=== PATIENT | male | born 2000 | race Two or more races ===

== ENCOUNTER 2022-02-10 12:52 | Emergency (ER) | payer OTHER, SELFPAY ==
--- NOTE | ~2022-02-10 | XR_ITS ---
XR chest 2V DATE: 02/10/2022 13:44 INDICATION: Chest pain TECHNIQUE: PA and lateral views COMPARISON: None FINDINGS: Normal heart size. No hilar or mediastinal enlargement. No pulmonary infiltrate or consolid ation, pleural effusion or pulmonary vascular congestion or pneumothorax. Included skeletal structures are unremarkable. IMPRESSION: Negative Reviewed, dictated and finalized at location A. IMPRESSION: Negative
--- NOTE | 2022-02-10 13:08 | ECG_ITS ---
Measurements Intervals [place] Rate: 102 P: 64 ND: 148 QRS: 64 QRSD: 101 T: 43 QT: 313 QTc: 408 Interpretive Statements SINUS TACHYCARDIA POSSIBLE LEFT ATRIAL ENLARGEMENT INCOMPLETE RIGHT BUNDLE BRANCH BLOCK MINIMAL Q WAVES- ANTEROLAT/INF LEADS BASELINE WANDER- I, II, III, AVL, AVF, V1-V3 BORDERLINE ECG Electronically Signed On 02-10-2022 14:11:52 CDT by Victoriano Castelan D.O.
[2022-02-10 13:11] VITALS: BP 123/84; PULSE 96; RESP 18; TEMP 36.9; O2SAT 98
[2022-02-10 13:25] LABS: Basophils Percent Auto 0.6 % (0.2-1.2); Eosinophils Absolute Auto 0.1 K/mm3 (0-0.3); Eosinophils Percent Auto 1.5 % (0-4.4); Hematocrit 42.7 % (42.0-52.0); Hemoglobin 14.6 g/dL (14.0-18.0); Immature Granulocyte Absolute 0.01 K/mm3 (0.00-0.031); Immature Granulocyte Percent A 0.2 % (0-0.5); Lymphocytes Absolute Auto 1.63 K/mm3 (0.9-3.2); Mean Corpuscular HGB Conc 34.2 g/dl (32-36); Mean Corpuscular Hemoglobin 30.7 pg (26-34); Mean Corpuscular Volume 89.7 fl (80-100); Mean Platelet Volume 9.5 fl (7.4-10.4); Monocytes Absolute Auto 0.6 K/mm3 (0.1-0.6); Monocytes Percent Auto 12.3 % (2.6-8.5); Neutrophils Absolute Auto 2.5 K/mm3 (1.3-6.7); Neutrophils Percent Auto 51.4 % (45.5-73.1); Platelet Count Result 230 k/mm3 (150-375); Red Blood Count 4.76 M/mm3 (4.6-6.20); White Blood Count 4.8 K/mm3 (4.5-10.0)
[2022-02-10 13:34] LABS: Alanine Aminotransferase 23 U/L (6-50); Albumin Level 4.6 g/dL (3.5-5.1); Alkaline Phosphatase 60 U/L (38-126); Anion Gap 6 mmol/L (8-16); Aspartate Amino Transferase 32 U/L (17-59); Bilirubin,Total 0.5 mg/dL (0.2-1.3); Blood Urea Nitrogen 13 mg/dL (9-20); Calcium 8.8 mg/dL (8.4-10.2); Carbon Dioxide 25 mmol/L (22-30); Chloride 105 mmol/L (98-107); Estimated Glomerular Filt Rate > 60; Glucose 113 mg/dL (65-110); Lipase 53 U/L (23-300); Potassium 3.7 mmol/L (3.4-5.0); Sodium 136 mmol/L (137-145)
[2022-02-10 13:35] LABS: INR 1.1; Prothrombin Time 13.6 Seconds (11.1-14.7)
[2022-02-10 13:36] LABS: Partial Thromboplastin Time 30.9 SECONDS (22.3-36.8)
[2022-02-10 13:46] LABS: Troponin I < 0.012 ng/mL (0.000-0.034)
--- NOTE | 2022-02-10 14:10 | ED.CHESTPAIN ---
HPI - Chest Pain General Chief Complaint: Chest Pain <TANYA Henry Last Filed: 02/10/22 18:31> Stated Complaint: CP <TANYA Henry Last Filed: 02/10/22 18:31> Time Seen by Provider: 02/10/22 13:02 <TANYA Henry Last Filed: 02/10/22 18:31> History of Present Illness HPI narrative: Patient is a 21-year-old O[place]i-speaking male here for evaluation of chest pain over the past month. Patient states his pain come on after doing cocaine and methamphetamines. No IV drug use, states he snorted and smoked these. States the pain is intermittent in nature, provoked by certain positions. He has not attempted any medications for his pain. States that the pain comes on he also feels little bit lightheaded and anxious. Denies rash, fevers, chills, shortness of breath, cough recent travel, calf pain or tenderness. No family history of heart trouble. <TANYA Henry Last Filed: 02/10/22 18:31> Related Data Allergies/Adverse Reactions: Allergies Allergy/AdvReac Type Severity Reaction Status Date / Time No Known Allergies Allergy Verified 02/10/22 13:14 <TANYA Henry Last Filed: 02/10/22 18:31> Review of Systems Review of Systems: Gen.: Denies fevers or chills Eyes: Denies eye pain or visual change ENT: Denies congestion Respiratory: Denies shortness of breath or cough CV: Reports chest pain. GI: Denies abdominal pain nausea, emesis or diarrhea denies burning, urgency, frequency or hematuria Musculoskeletal: Denies back pain or muscle pain Neuro: Denies numbness, tingling, weakness or focal weakness Skin: Denies rash Except as documented, all other systems reviewed and negative <TANYA Henry Last Filed: 02/10/22 18:31> Exam Narrative: APPEARANCE: No acute distress, nontoxic, resting in bed EYES: EOMI HEENT: Normocephalic, atraumatic, OMM RESPIRATORY: No respiratory distress Clear to auscultation bilaterally with no rhonchi wheezing or rales. CARDIOVASCULAR: Regular rate and rhythm without murmurs rubs or gallops. ABDOMINAL: Soft, nontender, nondistended, no rebound or guarding MUSCULOSKELETAL: No calf tenderness. Moves all extremities. No clubbing, cyanosis or edema. NEURO: Awake and alert. Following commands, speech normal, no focal deficits SKIN: Warm, dry. No rashes lesions or abrasions. No [place]ay lesions or Osler nodes PSYCHIATRIC: Normal affect/mood, <Ashley Espinosa PA-C - Last Filed: 02/10/22 18:31> Course NIB ADJUSTER/PA Physician Supervision For this patient encounter, I reviewed the NIB ADJUSTER or PA documentation, treatment plan, and medical decision making <Larry Vigil MD - Last Filed: 02/10/22 19:55> Vital Signs Vital signs: Vital Signs Temperature 98.5 F 02/10/22 13:11 Pulse Rate 96 02/10/22 13:11 Respiratory Rate 18 02/10/22 13:11 Blood Pressure 123/84 02/10/22 13:11 Pulse Oximetry 98 02/10/22 13:11 Oxygen Delivery Room Air 02/10/22 13:11 Temperature 98.5 F 02/10/22 13:11 Pulse Rate 61 02/10/22 17:36 Respiratory Rate 20 02/10/22 17:36 Blood Pressure 139/77 02/10/22 17:36 Pulse Oximetry 100 02/10/22 17:36 Oxygen Delivery Room Air 02/10/22 13:11 <Ashley Espinosa PA-C - Last Filed: 02/10/22 18:31> Vital Signs Temperature 98.5 F 02/10/22 13:11 Pulse Rate 96 02/10/22 13:11 Respiratory Rate 18 02/10/22 13:11 Blood Pressure 123/84 02/10/22 13:11 Pulse Oximetry 98 02/10/22 13:11 Oxygen Delivery Room Air 02/10/22 13:11 Temperature 98.5 F 02/10/22 13:11 Pulse Rate 61 02/10/22 17:36 Respiratory Rate 20 02/10/22 17:36 Blood Pressure 139/77 02/10/22 17:36 Pulse Oximetry 100 02/10/22 17:36 Oxygen Delivery Room Air 02/10/22 13:11 <Larry Vigil MD - Last Filed: 02/10/22 19:55> MDM - Chest Pain MDM Narrative Medical decision making narrative: 21-year-old male
[2022-02-10] MEDS: IBUPROFEN 400 MG TABLET 800 MG PO (14:21)
[2022-02-10] MEDS: ACETAMINOPHEN 500 MG TABLET 1000 MG PO (14:22)
--- NOTE | 2022-02-10 16:09 | ECG_ITS ---
Measurements Intervals [place] Rate: 63 P: 53 HI: 171 QRS: 64 QRSD: 99 T: 45 QT: 369 QTc: 380 Interpretive Statements SINUS RHYTHM INCOMPLETE RIGHT BUNDLE BRANCH BLOCK MINIMAL Q WAVES- INF/LAT LEADS BASELINE ARTIFACT- I, II, AVR, AVL BORDERLINE ECG Electronically Signed On 02-10-2022 20:21:03 CDT by Victoriano Castelan D.O.
[2022-02-10 16:26] LABS: D Dimer < 0.27 ug/mL (<0.48)
[2022-02-10 16:29] LABS: Troponin I < 0.012 ng/mL (0.000-0.034)
[2022-02-10 17:36] VITALS: BP 139/77; PULSE 61; RESP 20; O2SAT 100
== END 2022-02-10 17:37 | disposition home or self-care (01) ==
PROVIDERS: Physician Assistant; Emergency Provider Emergency Medicine
DX: R07.89 Other chest pain (principal); R00.0 Tachycardia, unspecified; R94.31 Abnormal electrocardiogram [ECG] [EKG]; I45.10 Unspecified right bundle-branch block
CPT/HCPCS: 36415; 71046; 80053; 83690; 84484; 85025; 85380; 85610; 85730; 93005; 99284; A9270

== ENCOUNTER 2022-02-24 23:25 | Emergency (ER) | payer OTHER, SELFPAY ==
[2022-02-24 23:29] VITALS: BP 124/66; PULSE 67; RESP 20; TEMP 36.6; O2SAT 99
[2022-02-25 00:01] VITALS: BP 127/104; PULSE 67; RESP 18; O2SAT 99
[2022-02-25 00:03] VITALS: BP 127/104; PULSE 67; RESP 20; TEMP 36.7; O2SAT 99
[2022-02-25] MEDS: BELLADONNA ALK/PHENOB ELIX 10 ML, MAG HYDROX/ALUMINUM HYD/SIMETH 30 ML, LIDOCAINE HCL 2... PO (00:40)
[2022-02-25 00:47] LABS: Basophils Percent Auto 0.3 % (0.2-1.2); Eosinophils Absolute Auto 0.1 K/mm3 (0-0.3); Eosinophils Percent Auto 1.2 % (0-4.4); Hemoglobin 14.7 g/dL (14.0-18.0); Immature Granulocyte Absolute 0.01 K/mm3 (0.00-0.031); Immature Granulocyte Percent A 0.1 % (0-0.5); Lymphocytes Absolute Auto 1.93 K/mm3 (0.9-3.2); Lymphocytes Percent Auto 25.4 % (18.3-44.2); Mean Corpuscular HGB Conc 34.2 g/dl (32-36); Mean Corpuscular Hemoglobin 30.8 pg (26-34); Mean Platelet Volume 9.4 fl (7.4-10.4); Monocytes Absolute Auto 0.6 K/mm3 (0.1-0.6); Monocytes Percent Auto 8.3 % (2.6-8.5); Neutrophils Absolute Auto 4.9 K/mm3 (1.3-6.7); Neutrophils Percent Auto 64.7 % (45.5-73.1); Platelet Count Result 264 k/mm3 (150-375); Red Blood Count 4.78 M/mm3 (4.6-6.20); Red Cell Distribution Width 12.2 % (11.5-14.5); White Blood Count 7.6 K/mm3 (4.5-10.0)
[2022-02-25 01:01] LABS: Alanine Aminotransferase 20 U/L (6-50); Albumin Level 4.6 g/dL (3.5-5.1); Alkaline Phosphatase 61 U/L (38-126); Anion Gap 6 mmol/L (8-16); Aspartate Amino Transferase 24 U/L (17-59); Bilirubin,Total 0.4 mg/dL (0.2-1.3); Blood Urea Nitrogen 12 mg/dL (9-20); Calcium 8.9 mg/dL (8.4-10.2); Carbon Dioxide 26 mmol/L (22-30); Chloride 107 mmol/L (98-107); Estimated CRCL calculation 136 ml/min; Estimated Glomerular Filt Rate > 60; Glucose 112 mg/dL (65-110); Lipase 38 U/L (23-300); Potassium 3.3 mmol/L (3.4-5.0); Sodium 139 mmol/L (137-145)
--- NOTE | 2022-02-25 02:20 | ED.GENADULT ---
HPI - General Adult General Chief complaint: Abdominal Pain Stated complaint: abd pain Time Seen by Provider: 02/24/22 23:58 History of Present Illness HPI narrative: Patient is a 21-year-old male who presents ER with epigastric pain ongoing for last 3 days. Worse when he eats chips. Radiates into his chest and back of his mouth. Burning. Mild nausea but no vomiting. No fevers or chills or sweats. No exertional chest pain. No dark black stools or blood in stool. Reports he was recently hospitalized for 1 day [place] after overdosing on methamphetamine and cocaine. Related Data Allergies Allergy/AdvReac Type Severity Reaction Status Date / Time No Known Allergies Allergy Verified 02/10/22 13:14 Review of Systems Review of Systems: All systems reviewed & are unremarkable except as noted in HPI and below Constitutional: Constitutional: Denies chills and Denies fever(s) ENT: Denies nasal congestion and Denies sore throat Cardiovascular: Cardiovascular: Denies chest pain, Denies rapid heart rate and Denies radiating jaw, neck or arm pain Respiratory: Respiratory: Denies cough and Denies dyspnea Gastrointestinal: Gastrointestinal: Reports abdominal pain, Reports heartburn, Reports nausea and Denies vomiting Neurologic: Denies focal weakness and Denies numbness PMFSH Past Medical History Medical History (Updated 02/25/22 @ 03:01 by Eddy Xie MD) Healthy adult male Surgical History Surgical History (Updated 02/25/22 @ 02:21 by Eddy Xie MD) No pertinent past surgical history Social History Social History (Updated 02/25/22 @ 02:22 by Eddy Xie MD) Substance use type: crack/cocaine and methamphetamine Exam Narrative: GENERAL: Well-appearing, well-nourished, and in no acute distress. HEAD: Normocephalic, atraumatic. CHEST: Clear to auscultation. No respiratory distress. HEART: Regular rate and rhythm. Normal peripheral pulses. ABDOMEN: Soft, nontender, nondistended. EXTREMITIES: Normal range of motion. No edema. SKIN: Warm, dry, no rash. NEURO: Alert and oriented x3. PSYCH: Normal mood and affect. Course Course Emergency Course: Symptoms improved with GI cocktail. Labs unremarkable. Discharge home with PPI. Vital Signs Vital signs: Vital Signs Temperature 97.9 F 02/24/22 23:29 Pulse Rate 67 02/24/22 23:29 Respiratory Rate 20 02/24/22 23:29 Blood Pressure 124/66 02/24/22 23:29 Pulse Oximetry 99 02/24/22 23:29 Oxygen Delivery Room Air 02/24/22 23:29 Temperature 98.0 F 02/25/22 00:03 Pulse Rate 67 02/25/22 00:03 Respiratory Rate 20 02/25/22 00:03 Blood Pressure 127/104 H 02/25/22 00:03 Pulse Oximetry 99 02/25/22 00:03 Oxygen Delivery Room Air 02/25/22 00:03 Medical Decision Making Vital Signs Vital Signs: Vital Signs Temperature 97.9 F 02/24/22 23:29 Pulse Rate 67 02/24/22 23:29 Respiratory Rate 20 02/24/22 23:29 Blood Pressure 124/66 02/24/22 23:29 Pulse Oximetry 99 02/24/22 23:29 Oxygen Delivery Room Air 02/24/22 23:29 Temperature 98.0 F 02/25/22 00:03 Pulse Rate 02/25/22 00:03 Respiratory Rate 02/25/22 00:03 Blood Pressure 127/104 H 02/25/22 00:03 Pulse Oximetry 99 02/25/22 00:03 Oxygen Delivery Room Air 02/25/22 00:03 Lab Data Result diagrams: 02/25/22 00:29 02/25/22 00:29 Labs: Lab Results 02/25/22 02/25/22 Range/Units 00:29 00:29 WBC 7.6 (4.5-10.0) K/mm3 RBC 4.78 (4.6-6.20) M/mm3 Hgb 14.7 (14.0-18.0) g/dL Hct 43.0 (42.0-52.0) % MCV 90.0 (80-100) fl MCH 30.8 (26-34) pg MCHC 34.2 (32-36) g/dl RDW 12.2 (11.5-14.5) % Plt Count 264 (150-375) k/mm3 MPV 9.4 (7.4-10.4) fl Immature Gran % (Auto) 0.1 (0-0.5) % Neut % (Auto) 64.7 (45.5-73.1) % Lymph % (Auto) 25.4 (18.3-44.2) % [place] % (Auto) 8.3 (2.6-8.5) % Eos % (Auto) 1.2 (0-4.4) % Baso % (Auto) 0.3 (
[2022-02-25 03:43] VITALS: BP 116/56; PULSE 56; RESP 18; O2SAT 98
== END 2022-02-25 03:45 | disposition home or self-care (01) ==
PROVIDERS: Emergency Provider Emergency Medicine
DX: K21.9 Gastro-esophageal reflux disease without esophagitis (principal)
CPT/HCPCS: 36415; 80053; 83690; 85025; 99283; A9270

== ENCOUNTER 2022-02-27 22:42 | Emergency (ER) | payer OTHER, SELFPAY ==
[2022-02-27 22:47] VITALS: BP 118/68; PULSE 65; RESP 18; TEMP 36.8; O2SAT 100
[2022-02-28] VITALS (25 sets, daily range): BP systolic 100–123; BP diastolic 57–85; PULSE 60–63; RESP 16–18; O2SAT 97–100
--- NOTE | 2022-02-28 00:17 | ED.ABDPAIN ---
HPI - Abdominal Pain General Chief Complaint: Abdominal Pain Stated Complaint: abd pain Time Seen by Provider: 02/28/22 00:17 History of Present Illness HPI narrative: The patient is a 21-year-old male with history of acid reflux returning to the emergency department for evaluation of epigastric abdominal pain after eating. 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 No nausea or vomiting. No fever or chills. No abdominal distention, diarrhea or flank pain. Patient with recent visits to this emergency department February [address] imaging and reassuring laboratory work-up. He then returned 3 days ago on the again with negative laboratory work-up. I inquired if patient had been taking his prescription medications or doing any dietary adjustments given symptoms do seem consistent with gastritis, and patient states that due to his work schedule and cost of medications he has not filled any prescriptions and has done no dietary modifications. Patient without significant abdominal distention. He denies chest pain, palpitations, shortness of breath. Related Data Allergies Allergy/AdvReac Type Severity Reaction Status Date / Time No Known Allergies Allergy Verified 02/10/22 13:14 Review of Systems Review of Systems: CONSTITUTIONAL: Denies fever CARDIOVASCULAR: Denies chest pain RESPIRATORY: Denies cough or dyspnea. GASTROINTESTINAL: Reports epigastric abdominal pain, denies lower abdominal pain, denies flank pain, denies nausea or vomiting SKIN: Denies rash MUSCULOSKELETAL: Denies back pain NEUROLOGIC: Denies headache PMFSH Past Medical History Medical History (Updated 02/28/22 @ 03:57 by Margo Vázquez MD) Healthy adult male Surgical History Surgical History (Updated 02/25/22 @ 02:21 by Eddy Xie MD) No pertinent past surgical history Social History Social History Substance use type: crack/cocaine and methamphetamine Exam Narrative: GENERAL: Awake, alert, conversant HEAD: Normocephalic, atraumatic. EYES: PERRLA and EOMI. ENT: Nares clear, no rhinorrhea or epistaxis. Mucous membranes moist. NECK: Supple. CHEST: No respiratory distress, breathing even and non labored HEART: Regular rate, sinus rhythm ABDOMEN:Non distended, epigastric tenderness without rebound, rigidity or guarding, no right upper quadrant tenderness, no flank tenderness bilaterally EXTREMITIES: Normal range of motion. No edema. SKIN: Warm, dry, no rash. NEURO:No focal deficits. Alert and oriented x3 Course Vital Signs Vital signs: Vital Signs Temperature 36.8 C 02/27/22 22:47 Pulse Rate 65 02/27/22 22:47 Respiratory Rate 18 02/27/22 22:47 Blood Pressure 118/68 02/27/22 22:47 Pulse Oximetry 100 02/27/22 22:47 Temperature 36.8 C 02/27/22 22:47 Pulse Rate 65 02/27/22 22:47 Respiratory Rate 18 02/27/22 22:47 Blood Pressure 118/68 02/27/22 22:47 Pulse Oximetry 100 02/27/22 22:47 MDM - Abdominal Pain MDM Narrative Medical decision making narrative: Patient presenting for evaluation of recurrent epigastric abdominal pain worse with eating and related to spicy food intake. Patient has had 2 recent previous visits for exactly similar symptoms and has failed to do any diet modification or take his prescription medications as prescribed. I spoke with the patient's significant other at length with compliancy with recommended medical regimen and ultimately his ER work-ups have been very reassuring with stable vital signs, normal laboratory studies. Given he has already had initial CT imaging and he has had no change in symptoms, vital signs or abnormal laboratory results, plan for continued PCP follow-up and pt ultimately discharged home. Lab Data Result diagrams: 02/28/22 00:48
[2022-02-28 00:53] LABS: Basophils Percent Auto 0.6 % (0.2-1.2); Eosinophils Absolute Auto 0.1 K/mm3 (0-0.3); Eosinophils Percent Auto 0.9 % (0-4.4); Hematocrit 40.9 % (42.0-52.0); Hemoglobin 14.2 g/dL (14.0-18.0); Immature Granulocyte Absolute 0.01 K/mm3 (0.00-0.031); Immature Granulocyte Percent A 0.1 % (0-0.5); Lymphocytes Absolute Auto 1.99 K/mm3 (0.9-3.2); Lymphocytes Percent Auto 29.1 % (18.3-44.2); Mean Corpuscular HGB Conc 34.7 g/dl (32-36); Mean Corpuscular Hemoglobin 31.1 pg (26-34); Mean Corpuscular Volume 89.7 fl (80-100); Mean Platelet Volume 9.8 fl (7.4-10.4); Monocytes Absolute Auto 0.8 K/mm3 (0.1-0.6); Monocytes Percent Auto 12.3 % (2.6-8.5); Neutrophils Absolute Auto 3.9 K/mm3 (1.3-6.7); Platelet Count Result 272 k/mm3 (150-375); Red Blood Count 4.56 M/mm3 (4.6-6.20); Red Cell Distribution Width 12.2 % (11.5-14.5); White Blood Count 6.8 K/mm3 (4.5-10.0)
[2022-02-28 00:56] LABS: Appearance Urine Clear (Clear); Bilirubin Urine Negative (Negative); Blood Urine Negative (Negative); Color Urine Yellow (Yellow); Glucose Urine UA Negative (Negative); Ketones Urine Negative (Negative); Leukocyte Esterase Ur Negative LEU/UL (Negative); Nitrate Urine Negative (Negative); Protein Urine Negative (Negative); Urobilinogen Urine 0.2 mg/dL (<2.0); pH Urine 6.5 (5.0-9.0)
[2022-02-28 00:57] LABS: Add Urine Microscopic? NO
[2022-02-28] MEDS: FAMOTIDINE 20 MG/2 ML VIAL IV PUSH (01:10)
[2022-02-28] MEDS: BELLADONNA ALK/PHENOB ELIX 10 ML, MAG HYDROX/ALUMINUM HYD/SIMETH 30 ML, LIDOCAINE HCL 2... PO (01:10)
[2022-02-28 03:51] LABS: Alanine Aminotransferase 21 U/L (6-50); Albumin Level 4.7 g/dL (3.5-5.1); Alkaline Phosphatase 70 U/L (38-126); Anion Gap 6 mmol/L (8-16); Aspartate Amino Transferase 32 U/L (17-59); Bilirubin,Total 0.7 mg/dL (0.2-1.3); Blood Urea Nitrogen 13 mg/dL (9-20); Calcium 8.9 mg/dL (8.4-10.2); Carbon Dioxide 27 mmol/L (22-30); Chloride 104 mmol/L (98-107); Estimated CRCL calculation 134 ml/min; Estimated Glomerular Filt Rate > 60; Glucose 91 mg/dL (65-110); Lipase 41 U/L (23-300); Potassium 3.5 mmol/L (3.4-5.0); Sodium 137 mmol/L (137-145)
== END 2022-02-28 05:10 | disposition home or self-care (01) ==
PROVIDERS: Emergency Provider Emergency Medicine
DX: K29.70 Gastritis, unspecified, without bleeding (principal); K21.9 Gastro-esophageal reflux disease without esophagitis
CPT/HCPCS: 36415; 80053; 81003; 83690; 85025; 96374; 99284; A9270